=== PATIENT | male | born 1940 | race Caucasian/White ===

== ENCOUNTER 2022-01-18 16:00 | Inpatient (IN) | payer OTHER ==
[2022-01-18] MEDS ORDERED: SODIUM CHLORIDE 500 ML IV STA (17:50)
[2022-01-18] MEDS ORDERED: ACETAMINOPHEN 1000 MG/100 ML BAG IVPB ONE (17:50)
[2022-01-18] MEDS ORDERED: guaiFENesin 200 MG/10 ML 10 ML UNIT-DOSE CUPS PO ONE (17:51)
[2022-01-18] MEDS ORDERED: ACETAMINOPHEN INJECTION 100 ML IVPB ONE (17:55)
[2022-01-18] MEDS ORDERED: SODIUM CHLORIDE FOR INHALATION 3 ML VIAL.NEB IH ONE (17:56)
[2022-01-18 18:32] LABS: VENOUS BASE EXCESS -0.3 mmol/L (-2-2); VENOUS O2 SATURATION 81.4 % (70-80); VENOUS PCO2 31.8 mmHg (38-52); VENOUS PH 7.463 (7.310-7.410)
[2022-01-18 18:36] LABS: BASO % 0.3 % (0-2.0); HEMATOCRIT 40.1 % (35.4-49); HEMOGLOBIN 14.1 GM/dL (11.7-16.9); LYMPH % 2.7 % (8-40); MCH 32.2 pg (25.7-33.7); MCHC 35.1 g/dl (32.0-35.9); MEAN CELL VOLUME 91.9 fl (80-96); MONO % 3.8 % (3.8-10.2); NEUT % 93.2 % (42.8-82.8); PLATELET COUNT 164 10^3/uL (134-434); RBC 4.36 M/mm3 (4.00-5.60); RDW 14.2 % (11.9-15.9)
[2022-01-18 18:43] LABS: INR 1.12 (0.83-1.09); PROTHROMBIN TIME (PATIENT) 12.9 SEC (9.7-13.0)
[2022-01-18 18:45] LABS: ACTIVATED PTT 27.7 SECONDS (25.2-36.5)
[2022-01-18] MEDS ORDERED: guaiFENesin/D-METHORPHAN HB 10 ML UNIT-DOSE CUPS ONE (18:47)
[2022-01-18] MEDS ORDERED: guaiFENesin/CODEINE 5 ML UNIT-DOSE CUPS PO ONE (18:51)
[2022-01-18 19:00] LABS: CHLORIDE 106 mmol/L (98-107); SODIUM 140 mmol/L (136-145)
[2022-01-18 19:01] LABS: ALBUMIN 3.4 g/dl (3.4-5.0); CALCIUM 8.7 mg/dL (8.5-10.1)
[2022-01-18 19:02] LABS: ANION GAP 11 MMOL/L (8-16); BLOOD UREA NITROGEN 15.2 mg/dL (7-18); CO2 23 mmol/L (21-32); GLUCOSE,RANDOM 124 mg/dL (74-106)
[2022-01-18 19:04] LABS: CREATININE 1.3 mg/dL (0.55-1.3)
[2022-01-18 19:05] LABS: SGOT/AST 15 U/L (15-37); SGPT/ALT 19 U/L (13-61)
[2022-01-18 19:06] LABS: BILIRUBIN,TOTAL 0.4 mg/dL (0.2-1); TOT PROT 6.2 g/dl (6.4-8.2)
[2022-01-18 19:08] LABS: ALK PHOS 78 U/L (45-117)
[2022-01-18] MEDS ORDERED: guaiFENesin/D-METHORPHAN TAB.ER.12H PO STA (19:14)
[2022-01-18 19:20] LABS: LACTIC ACID 2.8 mmol/L (0.4-2.0)
[2022-01-18 19:33] LABS: ANISOCYTOSIS 1+; MACROCYTOSIS 0
[2022-01-18 19:37] LABS: EPI CELLS 3 /uL (0-25.1); HYALINE CASTS 0 /uL (0-3.1); PH,URINE 5.5 (5.0-8.0); URINE APPEARANCE CLEAR; URINE BACTERIA 12 /uL (0-1359); URINE BILIRUBIN NEGATIVE (NEGATIVE); URINE COLOR YELLOW; URINE GLUCOSE (UA) NEGATIVE (NEGATIVE); URINE KETONE NEGATIVE (NEGATIVE); URINE LEUK ESTERASE NEGATIVE (NEGATIVE); URINE NITRITE NEGATIVE (NEGATIVE); URINE PROTEIN NEGATIVE (NEGATIVE); URINE RBC 10 /uL (0-23.9); URINE WBC 2 /uL (0-25.8)
[2022-01-18] MEDS ORDERED: SODIUM CHLORIDE 1,000 ML IV STA (19:42)
[2022-01-18] MEDS ORDERED: DEXAMETHASONE SOD PHOSPHATE 10 MG/1 ML VIAL ONE (20:00)
[2022-01-18] MEDS ORDERED: DEXAMETHASONE SOD PHOSPHATE 10 MG/1 ML VIAL IVPUSH ONE (20:16)
[2022-01-18] MEDS ORDERED: AZITHROMYCIN IVPB 500 MG in DEXTROSE 5%-WATER - 250 ML IVPB ONE (21:49)
[2022-01-18] MEDS ORDERED: CEFTRIAXONE 1 GM in DEXTROSE 5%-WATER - 100 ML IVPB ONE (21:49)
[2022-01-18] MEDS ORDERED: POTASSIUM CHLORIDE TABS 20 MEQ TABLET.ER (FP) PO ONE ×2 (22:08→23:03)
[2022-01-18] MEDS ORDERED: AZITHROMYCIN IVPB 500 MG/250 ML BAG IVPB ONE ×2 (22:12→23:25)
[2022-01-18] MEDS ORDERED: CEFTRIAXONE 1 GM in DEXTROSE 5%-WATER - 50 ML IVPB ONE (22:12)
[2022-01-18] MEDS ORDERED: REMDESIVIR 200 MG in SODIUM CHLORIDE 250 ML IVPB ONE (23:00)
[2022-01-18] MEDS ORDERED: BENZOCAINE/MENTH/CETYLPYRD CL 1 EACH LOZENGE MM ONE (23:04)
[2022-01-18] MEDS ORDERED: CEFTRIAXONE 1 GM/50 ML BAG ONE (23:04)
[2022-01-18] MEDS: BENZOCAINE/MENTH/CETYLPYRD CL 1 EACH LOZENGE MM PRN (23:10)
[2022-01-18] MEDS ORDERED: KCL 10 MEQ IVPB 10 MEQ/100 ML INFUS.BAG IVPB SCH (23:30)
[2022-01-18 23:34] LABS: MAGNESIUM 1.7 mg/dL (1.8-2.4)
[2022-01-18 23:35] LABS: MAGNESIUM 1.8 mg/dL (1.8-2.4)
[2022-01-18] MEDS ORDERED: MELATONIN 5 MG TABLETS PO ONE (23:36)
[2022-01-18 23:45] LABS: ARTERIAL BLD GAS O2 SATURATION 98.7 % (95-98); ARTERIAL BLOOD GAS BASE EXCESS -3.9 mmol/L (-2-2); ARTERIAL BLOOD GAS PO2 135.2 mmHg (80-100); ARTERIAL BLOOD GAS pH 7.408 (7.350-7.450)
[2022-01-18] MEDS ORDERED: SODIUM CHLORIDE 1,000 ML IV SCH (23:45)
[2022-01-18 23:49] LABS: LACTIC ACID 2.7 mmol/L (0.4-2.0)
[2022-01-19] MEDS ORDERED: MELATONIN 5 MG TABLETS ONE (00:01)
[2022-01-19] MEDS ORDERED: KCL 10 MEQ IVPB 10 MEQ/100 ML INFUS.BAG IVPB ONE (02:05)
[2022-01-19 05:37] LABS: LACTIC ACID 2.3 mmol/L (0.4-2.0)
[2022-01-19] MEDS ORDERED: HEPARIN NA (PORCINE) 5,000 UNITS/ML 1ML VIAL ONE (06:00)
[2022-01-19] MEDS ORDERED: HEPARIN NA (PORCINE) 5,000 UNITS/ML 1ML VIAL SQ SCH (06:00)
[2022-01-19 07:14] LABS: HEMATOCRIT 37.7 % (35.4-49); HEMOGLOBIN 13.3 GM/dL (11.7-16.9); MCH 32.5 pg (25.7-33.7); MCHC 35.4 g/dl (32.0-35.9); MEAN PLT VOLUME 7.9 fl (7.5-11.1); PLATELET COUNT 145 10^3/uL (134-434); RDW 14.3 % (11.9-15.9); WHITE BLOOD COUNT 7.1 K/mm3 (4.0-10.0)
[2022-01-19 07:25] LABS: ALBUMIN 2.8 g/dl (3.4-5.0); CALCIUM 8.5 mg/dL (8.5-10.1)
[2022-01-19 07:26] LABS: BLOOD UREA NITROGEN 13.9 mg/dL (7-18); MAGNESIUM 1.4 mg/dL (1.8-2.4)
[2022-01-19 07:29] LABS: PHOSPHOROUS 2.3 mg/dL (2.5-4.9)
[2022-01-19 07:30] LABS: BILIRUBIN,TOTAL 0.4 mg/dL (0.2-1); TOT PROT 5.2 g/dl (6.4-8.2)
[2022-01-19] MEDS ORDERED: DEXAMETHASONE SOD PHOSPHATE 10 MG/1 ML VIAL ONE (07:59)
[2022-01-19] MEDS ORDERED: BENZOCAINE/MENTH/CETYLPYRD CL 1 EACH LOZENGE MM ONE ×2 (08:10→08:11)
[2022-01-19] MEDS: BENZOCAINE/MENTH/CETYLPYRD CL 1 EACH LOZENGE MM PRN (08:11)
[2022-01-19] MEDS ORDERED: ACETAMINOPHEN 1000 MG/100 ML BAG IVPB PRN ×2 (09:00→14:07)
[2022-01-19 09:03] LABS: ANISOCYTOSIS 0; HELMET CELLS 0; HOWELL-JOLLY BODIES 0; MACROCYTOSIS 0; OVALOCYTE 0; ROULEAU 0; SICKELED CELLS 0; TARGET CELLS 0; TEAR DROP CELLS 0; TOXIC GRANULATION 0
[2022-01-19 09:54] LABS: LACTIC ACID 3.5 mmol/L (0.4-2.0)
[2022-01-19] MEDS ORDERED: REMDESIVIR 100 MG in SODIUM CHLORIDE 250 ML IVPB SCH (10:00)
[2022-01-19] MEDS ORDERED: DEXAMETHASONE SOD PHOSPHATE 10 MG/1 ML VIAL IVPB SCH (10:00)
[2022-01-19] MEDS ORDERED: RAPID SEQUENCE INTUBATION KIT NR ONE (11:32)
[2022-01-19] MEDS ORDERED: DEXMEDETOMIDINE PREMIX 400 MCG/100 ML BAG IVPB SCH (12:15)
[2022-01-19] MEDS ORDERED: ACETAMINOPHEN INJECTION 100 ML IVPB ONE (12:21)
[2022-01-19] MEDS ORDERED: NITROGLYCERIN 25MG/D5W 250ML 25 MG/250 ML ML IVPB SCH (13:00)
[2022-01-19] MEDS ORDERED: MIDAZOLAM HCL 5 MG/1 ML Single Dose Vial IVPUSH ONE (13:52)
[2022-01-19] MEDS: DEXMEDETOMIDINE PREMIX 400 MCG/100 ML BAG IVPB SCH (14:00)
[2022-01-19 14:07] LABS: ARTERIAL BLD GAS O2 SATURATION 87.2 % (95-98); ARTERIAL BLOOD GAS BASE EXCESS -8.7 mmol/L (-2-2); ARTERIAL BLOOD GAS PO2 69.7 mmHg (80-100)
[2022-01-19 14:11] LABS: ALLENS TEST POSITIVE; PT'S TEMP 104; VENT MODE A/C; VENT RATE 12
[2022-01-19 14:13] LABS: ARTERIAL BLOOD GAS pH 7.119 (7.350-7.450)
[2022-01-19] MEDS ORDERED: FENTANYL IVPB 500 MCG/100 ML BAG IVPB SCH (14:15)
[2022-01-19] MEDS: PROPOFOL 1,000,000 MCG/100 ML VIAL IVPB SCH (14:15)
[2022-01-19] MEDS: MUPIROCIN 2% TOPICAL OINTMENT FOR DECOLONIZATION NS SCH ×2 (14:40→22:30)
[2022-01-19] MEDS ORDERED: CEFTRIAXONE 1 GM in DEXTROSE 5%-WATER - 50 ML IVPB SCH (14:45)
[2022-01-19] MEDS: SODIUM CHLORIDE 1,000 ML IV SCH (15:03)
[2022-01-19 15:55] LABS: ARTERIAL BLD GAS O2 SATURATION 87.6 % (95-98); ARTERIAL BLOOD GAS BASE EXCESS -7.2 mmol/L (-2-2); ARTERIAL BLOOD GAS PO2 66.6 mmHg (80-100)
[2022-01-19 15:57] LABS: ALLENS TEST POSITIVE; VENT MODE AC; VENT RATE 28
[2022-01-19 15:59] LABS: ARTERIAL BLOOD GAS pH 7.175 (7.350-7.450)
[2022-01-19] MEDS ORDERED: FENTANYL NS IVPB 500 MCG/100 ML BAG IVPB ONE (16:05)
[2022-01-19] MEDS: FENTANYL IVPB 500 MCG/100 ML BAG IVPB SCH (16:25)
[2022-01-19] MEDS ORDERED: MIDAZOLAM IN 0.9 % SOD.CHLORID 1 MG/1 ML PLAST..BAG ONE (16:52)
[2022-01-19] MEDS: MIDAZOLAM IN 0.9 % SOD.CHLORID 100 MG/100 ML PLAST..BAG IVPB SCH (16:57)
[2022-01-19] MEDS ORDERED: MIDAZOLAM 100 MG in SODIUM CHLORIDE 100 ML IVPB SCH (17:00)
[2022-01-19] MEDS: AZITHROMYCIN IVPB 250 MG in DEXTROSE 5%-WATER - 250 ML IVPB SCH (17:34)
[2022-01-19 17:36] LABS: LACTIC ACID 3.2 mmol/L (0.4-2.0)
[2022-01-19] MEDS ORDERED: DEXAMETHASONE SOD PHOSPHATE 10 MG/1 ML VIAL IVPUSH ONE (19:56)
[2022-01-19] MEDS ORDERED: ROCURONIUM BROMIDE 50 MG/5 ML VIAL IV STA (21:48)
[2022-01-19] MEDS ORDERED: CHLORHEXIDINE GLUCONATE 4% CLEANSER FOR DECOLONIZATION TP SCH (22:00)
[2022-01-19] MEDS ORDERED: MUPIROCIN 2% TOPICAL OINTMENT FOR DECOLONIZATION NS SCH (22:00)
[2022-01-19] MEDS: CHLORHEXIDINE GLUCONATE 4% CLEANSER FOR DECOLONIZATION TP SCH (22:30)
[2022-01-19] MEDS: HEPARIN NA (PORCINE) 5,000 UNITS/ML 1ML VIAL SQ SCH (22:30)
[2022-01-19 23:55] LABS: ARTERIAL BLD GAS O2 SATURATION 96.5 % (95-98); ARTERIAL BLOOD GAS BASE EXCESS -7.2 mmol/L (-2-2); ARTERIAL BLOOD GAS pH 7.203 (7.350-7.450)
[2022-01-19 23:56] LABS: ALLENS TEST POSITIVE
[2022-01-19 23:57] LABS: VENT MODE A/C; VENT RATE 28
[2022-01-20] MEDS ORDERED: fentaNYL CITRATE 250 MCG/5 ML VIAL ONE (01:49)
[2022-01-20] MEDS: HEPARIN NA (PORCINE) 5,000 UNITS/ML 1ML VIAL SQ SCH (06:26)
[2022-01-20] MEDS ORDERED: METOPROLOL TARTRATE 5 MG/5 ML VIAL IVPUSH ONE (07:44)
[2022-01-20] MEDS ORDERED: MAGNESIUM SULF 50% (8.12 MEQ/2 ML-1 GM VIAL) IVPB ONE (07:51)
[2022-01-20 08:32] LABS: HEMATOCRIT 37.7 % (35.4-49); HEMOGLOBIN 13.1 GM/dL (11.7-16.9); MCH 32.4 pg (25.7-33.7); MCHC 34.7 g/dl (32.0-35.9); MEAN CELL VOLUME 93.4 fl (80-96); MEAN PLT VOLUME 8.6 fl (7.5-11.1); PLATELET COUNT 170 10^3/uL (134-434); RBC 4.04 M/mm3 (4.00-5.60); RDW 14.9 % (11.9-15.9); WHITE BLOOD COUNT 16.5 K/mm3 (4.0-10.0)
[2022-01-20 08:44] LABS: ARTERIAL BLOOD GAS BASE EXCESS -6.4 mmol/L (-2-2); ARTERIAL BLOOD GAS PO2 166.2 mmHg (80-100); ARTERIAL BLOOD GAS pH 7.303 (7.350-7.450)
[2022-01-20 08:47] LABS: ALBUMIN 2.5 g/dl (3.4-5.0); BLOOD UREA NITROGEN 35.9 mg/dL (7-18); CALCIUM 8.5 mg/dL (8.5-10.1)
[2022-01-20 08:48] LABS: MAGNESIUM 1.9 mg/dL (1.8-2.4)
[2022-01-20 08:50] LABS: PHOSPHOROUS 5.9 mg/dL (2.5-4.9)
[2022-01-20 08:52] LABS: BILIRUBIN,TOTAL 0.5 mg/dL (0.2-1); CREATININE 2.4 mg/dL (0.55-1.3); TOT PROT 4.8 g/dl (6.4-8.2)
[2022-01-20] MEDS: DEXAMETHASONE SOD PHOSPHATE 10 MG/1 ML VIAL IVPB SCH (09:24)
[2022-01-20] MEDS: MUPIROCIN 2% TOPICAL OINTMENT FOR DECOLONIZATION NS SCH ×2 (09:24→21:08)
[2022-01-20] MEDS: PANTOPRAZOLE SODIUM 40 MG VIAL IVPUSH SCH (09:24)
[2022-01-20] MEDS: CEFTRIAXONE 2 GM in DEXTROSE 5%-WATER 100 ML IVPB SCH (09:25)
[2022-01-20] MEDS: AZITHROMYCIN IVPB 250 MG in DEXTROSE 5%-WATER - 250 ML IVPB SCH (09:25)
[2022-01-20] MEDS: NAPH,MB-DB/K PH,MBDB POWDER PACKET PO SCH ×2 (09:25→21:10)
[2022-01-20] MEDS: MIDAZOLAM IN 0.9 % SOD.CHLORID 100 MG/100 ML PLAST..BAG IVPB SCH ×2 (09:26→18:26)
[2022-01-20 09:50] LABS: LACTIC ACID 2.5 mmol/L (0.4-2.0)
[2022-01-20] MEDS ORDERED: REMDESIVIR 100 MG in SODIUM CHLORIDE 250 ML IVPB SCH (10:00)
[2022-01-20] MEDS ORDERED: LACTATED RINGERS SOLUTION 1,000 ML/1,000 ML INFUS.BAG IV ONE (10:23)
[2022-01-20] MEDS ORDERED: FENTANYL NS IVPB 500 MCG/100 ML BAG IVPB ONE ×2 (10:26→17:35)
[2022-01-20] MEDS ORDERED: HEPARIN NA (PORCINE) 5,000 UNITS/ML 1ML VIAL IVPUSH PRN ×2 (11:07)
[2022-01-20] MEDS: HEPARIN INFUSION - 25,000 UNITS/500 ML INFUS.BAG IVPB SCH ×2 (11:15→11:47)
[2022-01-20] MEDS ORDERED: METOPROLOL TARTRATE 5 MG/5 ML VIAL IVPUSH PRN (11:40)
[2022-01-20] MEDS ORDERED: VASOPRESSIN 20 UNITS/ML VIAL IV ONE (13:22)
[2022-01-20] MEDS: metoPROLOL SUCCINATE 25 MG TAB.SR.24H (FP) PO SCH ×2 (13:31→21:10)
[2022-01-20] MEDS: VASOPRESSIN 40 UNITS in SODIUM CHLORIDE 98 ML IVPB SCH (13:31)
[2022-01-20] MEDS: BARICITINIB 2 MG TABLET NGT SCH (18:24)
[2022-01-20] MEDS: FENTANYL IVPB 500 MCG/100 ML BAG IVPB SCH (18:25)
[2022-01-20] MEDS: SODIUM CHLORIDE 1,000 ML IV SCH (18:25)
[2022-01-20] MEDS: PROPOFOL 1,000,000 MCG/100 ML VIAL IVPB SCH (18:26)
[2022-01-20] MEDS: DEXMEDETOMIDINE PREMIX 400 MCG/100 ML BAG IVPB SCH (18:26)
[2022-01-20] MEDS: CHLORHEXIDINE GLUCONATE 4% CLEANSER FOR DECOLONIZATION TP SCH (21:08)
[2022-01-21] MEDS ORDERED: FENTANYL NS IVPB 500 MCG/100 ML BAG IVPB ONE (01:25)
[2022-01-21 07:41] LABS: HEMATOCRIT 31.5 % (35.4-49); HEMOGLOBIN 10.7 GM/dL (11.7-16.9); MCH 31.8 pg (25.7-33.7); MEAN CELL VOLUME 93.7 fl (80-96); MEAN PLT VOLUME 9.3 fl (7.5-11.1); PLATELET COUNT 156 10^3/uL (134-434); RBC 3.36 M/mm3 (4.00-5.60); RDW 14.4 % (11.9-15.9)
[2022-01-21 07:58] LABS: CHLORIDE 110 mmol/L (98-107); SODIUM 140 mmol/L (136-145)
[2022-01-21 08:03] LABS: CALCIUM 7.8 mg/dL (8.5-10.1); GLUCOSE,RANDOM 159 mg/dL (74-106)
[2022-01-21 08:04] LABS: ANION GAP 9 MMOL/L (8-16); CO2 22 mmol/L (21-32); MAGNESIUM 2.5 mg/dL (1.8-2.4)
[2022-01-21 08:06] LABS: CREATININE 2.6 mg/dL (0.55-1.3); PHOSPHOROUS 5.3 mg/dL (2.5-4.9); SGOT/AST 33 U/L (15-37); SGPT/ALT 19 U/L (13-61)
[2022-01-21 08:07] LABS: BILIRUBIN,TOTAL 0.2 mg/dL (0.2-1); TOT PROT 4.2 g/dl (6.4-8.2)
[2022-01-21 08:09] LABS: ALK PHOS 44 U/L (45-117)
[2022-01-21 08:15] LABS: BLOOD UREA NITROGEN 62.1 mg/dL (7-18)
[2022-01-21] MEDS: VASOPRESSIN 40 UNITS in SODIUM CHLORIDE 98 ML IVPB SCH (08:20)
[2022-01-21] MEDS: MIDAZOLAM IN 0.9 % SOD.CHLORID 100 MG/100 ML PLAST..BAG IVPB SCH (08:24)
[2022-01-21] MEDS: PANTOPRAZOLE SODIUM 40 MG VIAL IVPUSH SCH (09:06)
[2022-01-21] MEDS: MUPIROCIN 2% TOPICAL OINTMENT FOR DECOLONIZATION NS SCH ×2 (09:06→21:29)
[2022-01-21] MEDS: DEXAMETHASONE SOD PHOSPHATE 10 MG/1 ML VIAL IVPB SCH (09:07)
[2022-01-21] MEDS: CEFTRIAXONE 2 GM in DEXTROSE 5%-WATER 100 ML IVPB SCH (09:08)
[2022-01-21] MEDS: METOPROLOL TARTRATE 25 MG TABLET (FP) NGT SCH ×2 (09:08→21:30)
[2022-01-21] MEDS: AZITHROMYCIN IVPB 250 MG in DEXTROSE 5%-WATER - 250 ML IVPB SCH (09:11)
[2022-01-21] MEDS: HEPARIN INFUSION - 25,000 UNITS/500 ML INFUS.BAG IVPB SCH (11:15)
[2022-01-21] MEDS: BARICITINIB 2 MG TABLET NGT SCH (13:59)
[2022-01-21] MEDS ORDERED: PROPOFOL 1,000,000 MCG/100 ML VIAL ONE (14:29)
[2022-01-21] MEDS: PROPOFOL 1,000,000 MCG/100 ML VIAL IVPB SCH (14:33)
[2022-01-21] MEDS: SODIUM CHLORIDE 1,000 ML IV SCH (18:51)
[2022-01-21] MEDS: CHLORHEXIDINE GLUCONATE 4% CLEANSER FOR DECOLONIZATION TP SCH (21:29)
[2022-01-22] MEDS: PROPOFOL 1,000,000 MCG/100 ML VIAL IVPB SCH ×3 (01:30→19:37)
[2022-01-22 07:26] LABS: HEMATOCRIT 28.1 % (35.4-49); MCH 32.9 pg (25.7-33.7); MCHC 35.5 g/dl (32.0-35.9); MEAN CELL VOLUME 92.5 fl (80-96); MEAN PLT VOLUME 8.9 fl (7.5-11.1); PLATELET COUNT 131 10^3/uL (134-434); RBC 3.04 M/mm3 (4.00-5.60); RDW 14.2 % (11.9-15.9); WHITE BLOOD COUNT 13.3 K/mm3 (4.0-10.0)
[2022-01-22] MEDS ORDERED: LACTATED RINGERS SOLUTION 1,000 ML/1,000 ML INFUS.BAG IV SCH (07:45)
[2022-01-22 07:53] LABS: ALBUMIN 1.9 g/dl (3.4-5.0); CALCIUM 7.8 mg/dL (8.5-10.1); MAGNESIUM 2.6 mg/dL (1.8-2.4)
[2022-01-22 07:56] LABS: CREATININE 2.1 mg/dL (0.55-1.3)
[2022-01-22 07:57] LABS: PHOSPHOROUS 3.5 mg/dL (2.5-4.9)
[2022-01-22 07:58] LABS: BILIRUBIN,TOTAL 0.2 mg/dL (0.2-1); TOT PROT 4.1 g/dl (6.4-8.2)
[2022-01-22] MEDS ORDERED: PROPOFOL 200 MG/20 ML VIAL IVPUSH ONE (08:29)
[2022-01-22] MEDS: AZITHROMYCIN IVPB 250 MG in DEXTROSE 5%-WATER - 250 ML IVPB SCH (09:24)
[2022-01-22] MEDS: CEFTRIAXONE 2 GM in DEXTROSE 5%-WATER 100 ML IVPB SCH ×2 (09:30→11:23)
[2022-01-22] MEDS: METOPROLOL TARTRATE 25 MG TABLET (FP) NGT SCH ×2 (09:45→21:45)
[2022-01-22] MEDS: FUROSEMIDE 40 MG/4 ML INJECTABLE VIAL IVPUSH ONE ×2 (09:45→11:23)
[2022-01-22] MEDS: DEXAMETHASONE SOD PHOSPHATE 10 MG/1 ML VIAL IVPB SCH (09:45)
[2022-01-22] MEDS: PANTOPRAZOLE SODIUM 40 MG VIAL IVPUSH SCH (09:45)
[2022-01-22] MEDS: MUPIROCIN 2% TOPICAL OINTMENT FOR DECOLONIZATION NS SCH ×2 (10:00→21:44)
[2022-01-22] MEDS ORDERED: PROPOFOL 1,000,000 MCG/100 ML VIAL ONE (12:27)
[2022-01-22] MEDS ORDERED: FUROSEMIDE 40 MG/4 ML INJECTABLE VIAL IVPUSH ONE (16:00)
[2022-01-22] MEDS: BARICITINIB 2 MG TABLET NGT SCH (16:02)
[2022-01-22] MEDS: AMINO ACIDS/PROTEIN HYDROLYS 30 ML LIQUID.PKT PO SCH (16:55)
[2022-01-22] MEDS: HEPARIN INFUSION - 25,000 UNITS/500 ML INFUS.BAG IVPB SCH (18:40)
[2022-01-22] MEDS ORDERED: DEXMEDETOMIDINE PREMIX 400 MCG/100 ML BAG IVPB SCH (21:30)
[2022-01-22] MEDS: CHLORHEXIDINE GLUCONATE 4% CLEANSER FOR DECOLONIZATION TP SCH (21:44)
[2022-01-23] MEDS: PROPOFOL 1,000,000 MCG/100 ML VIAL IVPB SCH ×2 (00:27→05:47)
[2022-01-23 08:13] LABS: BLOOD UREA NITROGEN 71.7 mg/dL (7-18); MAGNESIUM 2.6 mg/dL (1.8-2.4)
[2022-01-23 08:14] LABS: HEMATOCRIT 29.5 % (35.4-49); HEMOGLOBIN 10.5 GM/dL (11.7-16.9); MCH 32.9 pg (25.7-33.7); MCHC 35.7 g/dl (32.0-35.9); MEAN CELL VOLUME 92.3 fl (80-96); MEAN PLT VOLUME 8.9 fl (7.5-11.1); PLATELET COUNT 152 10^3/uL (134-434); WHITE BLOOD COUNT 14.2 K/mm3 (4.0-10.0)
[2022-01-23 08:16] LABS: PHOSPHOROUS 3.6 mg/dL (2.5-4.9)
[2022-01-23 08:17] LABS: TOT PROT 4.3 g/dl (6.4-8.2)
[2022-01-23 08:18] LABS: BILIRUBIN,TOTAL 0.2 mg/dL (0.2-1)
[2022-01-23] MEDS: AMINO ACIDS/PROTEIN HYDROLYS 30 ML LIQUID.PKT PO SCH ×2 (08:44→19:26)
[2022-01-23] MEDS ORDERED: morphine SULFATE 4 MG/ML VIAL IVPUSH ONE (10:17)
[2022-01-23] MEDS ORDERED: LORazepam 2 MG/ML SDV VIAL IVPUSH ONE (10:18)
[2022-01-23] MEDS: MUPIROCIN 2% TOPICAL OINTMENT FOR DECOLONIZATION NS SCH ×2 (10:36→21:46)
[2022-01-23] MEDS: DEXAMETHASONE SOD PHOSPHATE 10 MG/1 ML VIAL IVPB SCH (10:36)
[2022-01-23] MEDS: METOPROLOL TARTRATE 25 MG TABLET (FP) NGT SCH ×2 (10:37→21:49)
[2022-01-23] MEDS: PANTOPRAZOLE SODIUM 40 MG VIAL IVPUSH SCH (10:37)
[2022-01-23] MEDS: CEFTRIAXONE 2 GM in DEXTROSE 5%-WATER 100 ML IVPB SCH (10:37)
[2022-01-23] MEDS: AZITHROMYCIN IVPB 250 MG in DEXTROSE 5%-WATER - 250 ML IVPB SCH (10:37)
[2022-01-23] MEDS ORDERED: amLODIPine BESYLATE 5 MG TABLET (FP) PO ONE (11:51)
[2022-01-23] MEDS ORDERED: CARVEDILOL 3.125 MG TABLET (FP) PO ONE (11:57)
[2022-01-23] MEDS ORDERED: PROPOFOL 1,000,000 MCG/100 ML VIAL IVPB SCH (12:18)
[2022-01-23] MEDS ORDERED: FUROSEMIDE 40 MG/4 ML INJECTABLE VIAL IVPUSH SCH (14:00)
[2022-01-23] MEDS: BARICITINIB 2 MG TABLET PO SCH (15:30)
[2022-01-23] MEDS: SODIUM CHLORIDE NASAL SPRAY 44 ML BOTTLE NS PRN (15:34)
[2022-01-23 15:56] LABS: ACTIVATED PTT 52.7 SECONDS (25.2-36.5); INR 1.05 (0.83-1.09); PROTHROMBIN TIME (PATIENT) 12.1 SEC (9.7-13.0)
[2022-01-23] MEDS ORDERED: hydrOXYzine HCL 10 MG/5 ML LIQUID BULK BOTTLE PO PRN ×2 (17:13→17:21)
[2022-01-23] MEDS ORDERED: ALBUTEROL SO4 2.5/IPRATROPIUM 0.5 INH SOL 3 ML VIAL.NEB. NEB ONE (17:13)
[2022-01-23] MEDS: hydrOXYzine HCL 10 MG/5 ML LIQUID BULK BOTTLE PO PRN (17:51)
[2022-01-23] MEDS ORDERED: ACETAMINOPHEN 1000 MG/100 ML BAG IVPB ONE (18:27)
[2022-01-23] MEDS: KCL 10 MEQ IVPB 10 MEQ/100 ML INFUS.BAG IVPB SCH ×3 (19:03→21:46)
[2022-01-23] MEDS: CHLORHEXIDINE GLUCONATE 4% CLEANSER FOR DECOLONIZATION TP SCH (21:46)
[2022-01-23] MEDS: HEPARIN INFUSION - 25,000 UNITS/500 ML INFUS.BAG IVPB SCH (21:47)
[2022-01-23] MEDS: traZODone HCL 50 MG TABLET (FP) PO SCH ×2 (21:48→21:55)
[2022-01-23] MEDS ORDERED: MELATONIN 5 MG TABLETS PO PRN (21:56)
[2022-01-24] MEDS: hydrOXYzine HCL 10 MG/5 ML LIQUID BULK BOTTLE PO PRN ×2 (01:05→16:05)
[2022-01-24 07:35] LABS: HEMATOCRIT 32.1 % (35.4-49); HEMOGLOBIN 11.1 GM/dL (11.7-16.9); MCH 31.7 pg (25.7-33.7); MCHC 34.8 g/dl (32.0-35.9); MEAN CELL VOLUME 91.2 fl (80-96); MEAN PLT VOLUME 8.8 fl (7.5-11.1); PLATELET COUNT 171 10^3/uL (134-434); RBC 3.52 M/mm3 (4.00-5.60); RDW 13.8 % (11.9-15.9); WHITE BLOOD COUNT 13.5 K/mm3 (4.0-10.0)
[2022-01-24 07:54] LABS: BLOOD UREA NITROGEN 54.8 mg/dL (7-18); CALCIUM 8.1 mg/dL (8.5-10.1); MAGNESIUM 2.3 mg/dL (1.8-2.4)
[2022-01-24 07:55] LABS: ALBUMIN 2.2 g/dl (3.4-5.0)
[2022-01-24 07:57] LABS: CREATININE 1.4 mg/dL (0.55-1.3); PHOSPHOROUS 2.4 mg/dL (2.5-4.9)
[2022-01-24 07:59] LABS: BILIRUBIN,TOTAL 0.4 mg/dL (0.2-1); TOT PROT 4.3 g/dl (6.4-8.2)
[2022-01-24] MEDS: PANTOPRAZOLE SODIUM 40 MG VIAL IVPUSH SCH (10:22)
[2022-01-24] MEDS: MUPIROCIN 2% TOPICAL OINTMENT FOR DECOLONIZATION NS SCH (10:22)
[2022-01-24] MEDS: AMINO ACIDS/PROTEIN HYDROLYS 30 ML LIQUID.PKT PO SCH ×2 (10:22→18:05)
[2022-01-24] MEDS: FUROSEMIDE 40 MG/4 ML INJECTABLE VIAL IVPUSH SCH (10:22)
[2022-01-24] MEDS: METOPROLOL TARTRATE 25 MG TABLET (FP) NGT SCH (10:22)
[2022-01-24] MEDS: DEXAMETHASONE SOD PHOSPHATE 10 MG/1 ML VIAL IVPB SCH (10:22)
[2022-01-24] MEDS: CEFTRIAXONE 2 GM in DEXTROSE 5%-WATER 100 ML IVPB SCH (10:22)
[2022-01-24] MEDS ORDERED: OXYMETAZOLINE 0.05% NASAL SOLUTION 15 ML BOTTLE NS PRN (11:28)
[2022-01-24] MEDS: KCL 10 MEQ IVPB 10 MEQ/100 ML INFUS.BAG IVPB SCH ×2 (11:39→13:22)
[2022-01-24 12:45] VITALS: BMI 25.7
[2022-01-24] MEDS: BARICITINIB 2 MG TABLET PO SCH (16:04)
[2022-01-24] MEDS: SODIUM CHLORIDE NASAL SPRAY 44 ML BOTTLE NS PRN (16:07)
[2022-01-24] MEDS: HEPARIN INFUSION - 25,000 UNITS/500 ML INFUS.BAG IVPB SCH (18:40)
[2022-01-24] MEDS: CHLORHEXIDINE GLUCONATE 4% CLEANSER FOR DECOLONIZATION TP SCH (22:31)
[2022-01-25 07:44] LABS: HEMATOCRIT 35.2 % (35.4-49); HEMOGLOBIN 12.1 GM/dL (11.7-16.9); MCH 31.5 pg (25.7-33.7); MCHC 34.5 g/dl (32.0-35.9); MEAN CELL VOLUME 91.2 fl (80-96); MEAN PLT VOLUME 8.6 fl (7.5-11.1); PLATELET COUNT 198 10^3/uL (134-434); RBC 3.86 M/mm3 (4.00-5.60); RDW 13.5 % (11.9-15.9); WHITE BLOOD COUNT 11.2 K/mm3 (4.0-10.0)
[2022-01-25 08:10] LABS: CALCIUM 8.4 mg/dL (8.5-10.1)
[2022-01-25 08:11] LABS: ALBUMIN 2.2 g/dl (3.4-5.0); BLOOD UREA NITROGEN 37.4 mg/dL (7-18); MAGNESIUM 2.2 mg/dL (1.8-2.4)
[2022-01-25 08:14] LABS: CREATININE 1.1 mg/dL (0.55-1.3); PHOSPHOROUS 2.3 mg/dL (2.5-4.9)
[2022-01-25 08:15] LABS: TOT PROT 4.5 g/dl (6.4-8.2)
[2022-01-25 08:16] LABS: BILIRUBIN,TOTAL 0.4 mg/dL (0.2-1)
[2022-01-25] MEDS: PANTOPRAZOLE SODIUM 40 MG VIAL IVPUSH SCH (09:32)
[2022-01-25] MEDS: AMINO ACIDS/PROTEIN HYDROLYS 30 ML LIQUID.PKT PO SCH ×2 (09:32→17:39)
[2022-01-25] MEDS: DEXAMETHASONE SOD PHOSPHATE 10 MG/1 ML VIAL IVPB SCH (09:33)
[2022-01-25] MEDS: FUROSEMIDE 40 MG/4 ML INJECTABLE VIAL IVPUSH SCH (09:33)
[2022-01-25] MEDS: CEFTRIAXONE 2 GM in DEXTROSE 5%-WATER 100 ML IVPB SCH (09:35)
[2022-01-25] MEDS: BARICITINIB 2 MG TABLET PO SCH (16:12)
[2022-01-25] MEDS: HEPARIN INFUSION - 25,000 UNITS/500 ML INFUS.BAG IVPB SCH ×2 (17:38→19:36)
[2022-01-25] MEDS: CHLORHEXIDINE GLUCONATE 4% CLEANSER FOR DECOLONIZATION TP SCH (21:17)
[2022-01-26 07:28] LABS: ALBUMIN 2.2 g/dl (3.4-5.0); BLOOD UREA NITROGEN 34.2 mg/dL (7-18); CALCIUM 8.4 mg/dL (8.5-10.1); MAGNESIUM 2.1 mg/dL (1.8-2.4)
[2022-01-26 07:31] LABS: PHOSPHOROUS 2.9 mg/dL (2.5-4.9)
[2022-01-26 07:33] LABS: TOT PROT 4.6 g/dl (6.4-8.2)
[2022-01-26 07:41] LABS: HEMATOCRIT 36.1 % (35.4-49); HEMOGLOBIN 12.6 GM/dL (11.7-16.9); MCHC 34.7 g/dl (32.0-35.9); MEAN CELL VOLUME 92.2 fl (80-96); MEAN PLT VOLUME 8.3 fl (7.5-11.1); PLATELET COUNT 228 10^3/uL (134-434); RBC 3.92 M/mm3 (4.00-5.60); RDW 13.6 % (11.9-15.9); WHITE BLOOD COUNT 16.3 K/mm3 (4.0-10.0)
[2022-01-26 08:50] LABS: BILIRUBIN,TOTAL 0.4 mg/dL (0.2-1)
[2022-01-26] MEDS: DEXAMETHASONE SOD PHOSPHATE 10 MG/1 ML VIAL IVPB SCH (09:33)
[2022-01-26] MEDS: AMINO ACIDS/PROTEIN HYDROLYS 30 ML LIQUID.PKT PO SCH ×2 (09:33→17:33)
[2022-01-26] MEDS: PANTOPRAZOLE SODIUM 40 MG VIAL IVPUSH SCH (09:34)
[2022-01-26] MEDS: POTASSIUM CHLORIDE ORAL LIQUID 20 MEQ/15 ML PO SCH (09:34)
[2022-01-26] MEDS: FUROSEMIDE 40 MG/4 ML INJECTABLE VIAL IVPUSH SCH (09:34)
[2022-01-26] MEDS: APIXABAN 5 MG TABLET PO SCH ×2 (14:50→22:11)
[2022-01-26] MEDS: BARICITINIB 2 MG TABLET PO SCH (17:32)
[2022-01-26] MEDS: SPIRONOLACTONE 25 MG TABLET PO SCH (17:33)
[2022-01-26] MEDS ORDERED: SPIRONOLACTONE 25 MG TABLET PO SCH (22:00)
[2022-01-26] MEDS: CHLORHEXIDINE GLUCONATE 4% CLEANSER FOR DECOLONIZATION TP SCH (22:11)
[2022-01-27 07:31] LABS: HEMATOCRIT 36.7 % (35.4-49); HEMOGLOBIN 12.4 GM/dL (11.7-16.9); MCHC 33.8 g/dl (32.0-35.9); MEAN CELL VOLUME 91.9 fl (80-96); MEAN PLT VOLUME 8.4 fl (7.5-11.1); PLATELET COUNT 280 10^3/uL (134-434); RDW 14.1 % (11.9-15.9); WHITE BLOOD COUNT 21.1 K/mm3 (4.0-10.0)
[2022-01-27 07:55] LABS: CALCIUM 8.3 mg/dL (8.5-10.1)
[2022-01-27 07:56] LABS: ALBUMIN 2.3 g/dl (3.4-5.0); BLOOD UREA NITROGEN 40.1 mg/dL (7-18); MAGNESIUM 2.1 mg/dL (1.8-2.4)
[2022-01-27 07:59] LABS: CREATININE 1.2 mg/dL (0.55-1.3); PHOSPHOROUS 2.6 mg/dL (2.5-4.9)
[2022-01-27 08:00] LABS: BILIRUBIN,TOTAL 0.4 mg/dL (0.2-1); TOT PROT 4.8 g/dl (6.4-8.2)
[2022-01-27] MEDS: AMINO ACIDS/PROTEIN HYDROLYS 30 ML LIQUID.PKT PO SCH ×2 (08:51→17:38)
[2022-01-27 09:17] LABS: ANISOCYTOSIS 0; MACROCYTOSIS 0
[2022-01-27 09:22] LABS: HEMATOCRIT 39.6 % (35.4-49); HEMOGLOBIN 13.4 GM/dL (11.7-16.9); MCH 31.6 pg (25.7-33.7); MCHC 33.7 g/dl (32.0-35.9); MEAN CELL VOLUME 93.6 fl (80-96); MEAN PLT VOLUME 8.6 fl (7.5-11.1); PLATELET COUNT 329 10^3/uL (134-434); RBC 4.23 M/mm3 (4.00-5.60); RDW 14.4 % (11.9-15.9); WHITE BLOOD COUNT 22.1 K/mm3 (4.0-10.0)
[2022-01-27] MEDS: FUROSEMIDE 40 MG/4 ML INJECTABLE VIAL IVPUSH SCH (09:50)
[2022-01-27] MEDS: PANTOPRAZOLE SODIUM 40 MG VIAL IVPUSH SCH (09:50)
[2022-01-27] MEDS: DEXAMETHASONE SOD PHOSPHATE 10 MG/1 ML VIAL IVPB SCH (09:50)
[2022-01-27] MEDS: SPIRONOLACTONE 25 MG TABLET PO SCH (09:51)
[2022-01-27] MEDS: APIXABAN 5 MG TABLET PO SCH ×2 (09:51→22:12)
[2022-01-27] MEDS: POTASSIUM CHLORIDE ORAL LIQUID 20 MEQ/15 ML PO SCH (09:51)
[2022-01-27 10:05] LABS: ANISOCYTOSIS 0; HELMET CELLS 0; HOWELL-JOLLY BODIES 0; MACROCYTOSIS 0; OVALOCYTE 0; ROULEAU 0; SICKELED CELLS 0; TARGET CELLS 0; TEAR DROP CELLS 0; TOXIC GRANULATION 0
[2022-01-27 10:49] LABS: ALBUMIN 2.6 g/dl (3.4-5.0); CALCIUM 8.7 mg/dL (8.5-10.1); MAGNESIUM 2.2 mg/dL (1.8-2.4)
[2022-01-27 10:52] LABS: CREATININE 1.3 mg/dL (0.55-1.3)
[2022-01-27 10:54] LABS: BILIRUBIN,TOTAL 0.5 mg/dL (0.2-1); TOT PROT 5.2 g/dl (6.4-8.2)
[2022-01-27] MEDS ORDERED: POTASSIUM CHLORIDE TABS 20 MEQ TABLET.ER (FP) PO ONE (14:09)
[2022-01-27] MEDS: BARICITINIB 2 MG TABLET PO SCH (15:07)
[2022-01-27] MEDS: CHLORHEXIDINE GLUCONATE 4% CLEANSER FOR DECOLONIZATION TP SCH (22:12)
[2022-01-28 07:51] LABS: HEMATOCRIT 35.2 % (35.4-49); HEMOGLOBIN 12.3 GM/dL (11.7-16.9); MCH 32.1 pg (25.7-33.7); MCHC 34.9 g/dl (32.0-35.9); MEAN CELL VOLUME 92.2 fl (80-96); MEAN PLT VOLUME 8.1 fl (7.5-11.1); PLATELET COUNT 284 10^3/uL (134-434); RBC 3.82 M/mm3 (4.00-5.60); RDW 14.1 % (11.9-15.9)
[2022-01-28 08:06] LABS: ALBUMIN 2.3 g/dl (3.4-5.0); CALCIUM 8.9 mg/dL (8.5-10.1); MAGNESIUM 2.2 mg/dL (1.8-2.4)
[2022-01-28 08:09] LABS: CREATININE 1.2 mg/dL (0.55-1.3)
[2022-01-28 08:10] LABS: BILIRUBIN,TOTAL 0.5 mg/dL (0.2-1); TOT PROT 4.7 g/dl (6.4-8.2)
[2022-01-28] MEDS: SPIRONOLACTONE 25 MG TABLET PO SCH (09:50)
[2022-01-28] MEDS: APIXABAN 5 MG TABLET PO SCH ×2 (09:50→21:13)
[2022-01-28] MEDS: FUROSEMIDE 40 MG/4 ML INJECTABLE VIAL IVPUSH SCH (09:50)
[2022-01-28] MEDS: AMINO ACIDS/PROTEIN HYDROLYS 30 ML LIQUID.PKT PO SCH ×2 (09:50→19:33)
[2022-01-28] MEDS: PANTOPRAZOLE SODIUM 40 MG VIAL IVPUSH SCH (09:50)
[2022-01-28] MEDS: POTASSIUM CHLORIDE ORAL LIQUID 20 MEQ/15 ML PO SCH (09:50)
[2022-01-28] MEDS: DEXAMETHASONE SOD PHOSPHATE 10 MG/1 ML VIAL IVPB SCH (09:51)
[2022-01-28 12:44] LABS: HELMET CELLS 0; HOWELL-JOLLY BODIES 0; OVALOCYTE 0; ROULEAU 0; SICKELED CELLS 0; TARGET CELLS 0; TEAR DROP CELLS 0; TOXIC GRANULATION 0
[2022-01-28 12:45] LABS: ANISOCYTOSIS 0; MACROCYTOSIS 0
[2022-01-28] MEDS: BARICITINIB 2 MG TABLET PO SCH (15:32)
[2022-01-28] MEDS: CHLORHEXIDINE GLUCONATE 4% CLEANSER FOR DECOLONIZATION TP SCH (21:13)
[2022-01-29 07:34] LABS: HEMATOCRIT 36.5 % (35.4-49); HEMOGLOBIN 12.9 GM/dL (11.7-16.9); MCH 32.9 pg (25.7-33.7); MCHC 35.3 g/dl (32.0-35.9); MEAN CELL VOLUME 93.3 fl (80-96); MEAN PLT VOLUME 8.6 fl (7.5-11.1); PLATELET COUNT 314 10^3/uL (134-434); RBC 3.91 M/mm3 (4.00-5.60); RDW 14.1 % (11.9-15.9); WHITE BLOOD COUNT 15.8 K/mm3 (4.0-10.0)
[2022-01-29 07:50] LABS: ALBUMIN 2.6 g/dl (3.4-5.0); BLOOD UREA NITROGEN 50.6 mg/dL (7-18); CALCIUM 8.8 mg/dL (8.5-10.1); MAGNESIUM 2.4 mg/dL (1.8-2.4)
[2022-01-29 07:53] LABS: CREATININE 1.3 mg/dL (0.55-1.3)
[2022-01-29 07:54] LABS: BILIRUBIN,TOTAL 0.5 mg/dL (0.2-1); TOT PROT 5.4 g/dl (6.4-8.2)
[2022-01-29 08:53] LABS: ANISOCYTOSIS 0; MACROCYTOSIS 0
[2022-01-29] MEDS: APIXABAN 5 MG TABLET PO SCH ×2 (09:15→21:30)
[2022-01-29] MEDS: FUROSEMIDE 40 MG TABLET (FP) PO SCH (09:15)
[2022-01-29] MEDS: PANTOPRAZOLE SODIUM 40 MG VIAL IVPUSH SCH (09:15)
[2022-01-29] MEDS: AMINO ACIDS/PROTEIN HYDROLYS 30 ML LIQUID.PKT PO SCH ×3 (09:15→16:30)
[2022-01-29] MEDS: MULTIVITAMINS (DAILY MVI) TABLET (FP) PO SCH (09:15)
[2022-01-29] MEDS: SPIRONOLACTONE 25 MG TABLET PO SCH (09:15)
[2022-01-29] MEDS: DEXAMETHASONE SOD PHOSPHATE 10 MG/1 ML VIAL IVPB SCH (09:15)
[2022-01-29] MEDS: BARICITINIB 2 MG TABLET PO SCH (15:14)
[2022-01-29] MEDS: CHLORHEXIDINE GLUCONATE 4% CLEANSER FOR DECOLONIZATION TP SCH (21:30)
[2022-01-29] MEDS: METOPROLOL TARTRATE 25 MG TABLET (FP) PO SCH (21:30)
[2022-01-30 07:38] LABS: HEMATOCRIT 32.7 % (35.4-49); HEMOGLOBIN 11.6 GM/dL (11.7-16.9); MCH 32.6 pg (25.7-33.7); MCHC 35.5 g/dl (32.0-35.9); MEAN CELL VOLUME 91.7 fl (80-96); MEAN PLT VOLUME 8.3 fl (7.5-11.1); PLATELET COUNT 348 10^3/uL (134-434); RBC 3.57 M/mm3 (4.00-5.60); RDW 14.2 % (11.9-15.9); WHITE BLOOD COUNT 14.5 K/mm3 (4.0-10.0)
[2022-01-30 08:14] LABS: BLOOD UREA NITROGEN 54.5 mg/dL (7-18); CALCIUM 8.5 mg/dL (8.5-10.1)
[2022-01-30 08:15] LABS: ALBUMIN 2.4 g/dl (3.4-5.0); MAGNESIUM 2.1 mg/dL (1.8-2.4)
[2022-01-30 08:17] LABS: CREATININE 1.1 mg/dL (0.55-1.3)
[2022-01-30 08:19] LABS: BILIRUBIN,TOTAL 0.6 mg/dL (0.2-1); TOT PROT 4.8 g/dl (6.4-8.2)
[2022-01-30] MEDS: AMINO ACIDS/PROTEIN HYDROLYS 30 ML LIQUID.PKT PO SCH (09:00)
[2022-01-30 09:01] LABS: ANISOCYTOSIS 3+; MACROCYTOSIS 0
[2022-01-30] MEDS: METOPROLOL TARTRATE 25 MG TABLET (FP) PO SCH (09:46)
[2022-01-30] MEDS: SPIRONOLACTONE 25 MG TABLET PO SCH (09:46)
[2022-01-30] MEDS: FUROSEMIDE 40 MG TABLET (FP) PO SCH (09:46)
[2022-01-30] MEDS: MULTIVITAMINS (DAILY MVI) TABLET (FP) PO SCH (09:46)
[2022-01-30] MEDS: PANTOPRAZOLE SODIUM 40 MG VIAL IVPUSH SCH (09:46)
[2022-01-30] MEDS: hydrOXYzine HCL 10 MG/5 ML LIQUID BULK BOTTLE PO PRN (09:46)
[2022-01-30] MEDS: APIXABAN 5 MG TABLET PO SCH (09:57)
[2022-01-30 10:34] VITALS: RESP 17; TEMP 97.9
[2022-01-30 10:41] VITALS: BP 135/64; PULSE 75
== END 2022-01-30 13:35 | disposition home health service (06) | DRG 207 ==
LOC: JER 16:00 → JERBED 22:15 → JICU 01-19 13:51
PROVIDERS: ADMIT Internal Medicine; ATTEND Nurse Practitioner Acute Care
PROC: 5A1955Z Respiratory Ventilation, Greater than 96 Consecutive Hours (ICD-10-PCS; principal; 2022-01-19)
PROC: 0BH17EZ Insertion of Endotracheal Airway into Trachea, Via Natural or Artificial Opening (ICD-10-PCS; 2022-01-19)
PROC: 03HY32Z Insertion of Monitoring Device into Upper Artery, Percutaneous Approach (ICD-10-PCS; 2022-01-19)
PROC: 4A133B1 Monitoring of Arterial Pressure, Peripheral, Percutaneous Approach (ICD-10-PCS; 2022-01-19)
PROC: 4A133J1 Monitoring of Arterial Pulse, Peripheral, Percutaneous Approach (ICD-10-PCS; 2022-01-19)
PROC: XW033E5 Introduction of Remdesivir Anti-infective into Peripheral Vein, Percutaneous Approach, New Technology Group 5 (ICD-10-PCS; 2022-01-20)
PROC: 02HV33Z Insertion of Infusion Device into Superior Vena Cava, Percutaneous Approach (ICD-10-PCS; 2022-01-21)
PROC: B548ZZA Ultrasonography of Superior Vena Cava, Guidance (ICD-10-PCS; 2022-01-21)
DX: U07.1 COVID-19 (principal); A41.9 Sepsis, unspecified organism; I21.4 Non-ST elevation (NSTEMI) myocardial infarction; J12.82 Pneumonia due to coronavirus disease 2019; R65.21 Severe sepsis with septic shock; I50.31 Acute diastolic (congestive) heart failure; J96.01 Acute respiratory failure with hypoxia; J96.02 Acute respiratory failure with hypercapnia; I24.8 Other forms of acute ischemic heart disease; E87.20 Acidosis, unspecified; N17.9 Acute kidney failure, unspecified; I13.0 Hypertensive heart and chronic kidney disease with heart failure and stage 1 through stage 4 chronic kidney disease, or unspecified chronic kidney disease; I10 Essential (primary) hypertension; I45.10 Unspecified right bundle-branch block; E87.6 Hypokalemia; K76.89 Other specified diseases of liver; R91.1 Solitary pulmonary nodule; I48.0 Paroxysmal atrial fibrillation; N18.9 Chronic kidney disease, unspecified
CPT/HCPCS: 0241U-QW; 36415; 36600; 71045-TC-FY; 71275-TC; 80053; 80061; 81003; 82272; 82550; 82553; 82728; 82803; 82962; 83605; 83615; 83735; 83880; 84100; 84443; 84484; 85025; 85027; 85379; 85610; 85651; 85730; 86140; 86480; 86850; 86900; 86901; 87040; 87070; 87086; 87205; 87517; 87522; 87633; 87899; 93005; 93010; 93306-TC; 94002; 94640; 94761; 97116-GP; 97161-GP; 99285-25; C9399; C9803-CS; J1100; J1644; Q9967; U0003; U0005

== ENCOUNTER 2024-01-28 04:20 | Day surgery (SDC) | payer OTHER ==
[2024-01-27 14:04] VITALS: BMI 26.4
[2024-01-28] MEDS ORDERED: BUPIVACAINE HCL/PF 0.75% 10 ML VIAL ONE (07:15)
[2024-01-28] MEDS ORDERED: LIDOCAINE HCL/PF 1% SDV 5ML VIAL ONE (07:15)
[2024-01-28] MEDS ORDERED: ACETAMINOPHEN 500 MG TABLET (FP) PO PRN (08:41)
[2024-01-28 09:19] VITALS: RESP 20
[2024-01-28] MEDS: LIDOCAINE HCL 1% PRESERVATIVE FREE - 30ML VIAL IJ ONE ×2 (10:20)
[2024-01-28] MEDS: BUPIVACAINE HCL/PF 0.75% 10 ML VIAL NR ONE ×2 (10:23)
[2024-01-28 11:20] VITALS: BP 134/66; PULSE 72; TEMP 99.1
== END 2024-01-28 11:25 | disposition home or self-care (01) ==
LOC: JASU-SURG 04:20
PROVIDERS: ATTEND Pain Medicine Pain Medicine
PROC: 3E0T3BZ Introduction of Anesthetic Agent into Peripheral Nerves and Plexi, Percutaneous Approach (ICD-10-PCS; principal; 2024-01-28 10:30)
DX: M47.816 Spondylosis without myelopathy or radiculopathy, lumbar region (principal)
CPT/HCPCS: 76000-TC-FY

== ENCOUNTER 2024-03-03 04:12 | Day surgery (SDC) | payer OTHER ==
[2024-02-28 11:02] VITALS: BMI 25.1
[~2024-03-03 04:12] MED LIST: ACETAMINOPHEN 500 MG TABLET (FP) PO PRN
[2024-03-03] MEDS ORDERED: BUPIVACAINE HCL/PF 0.75% 10 ML VIAL ONE (07:28)
[2024-03-03 15:18] VITALS: TEMP 97.7
[2024-03-03] MEDS: LIDOCAINE HCL 1% PRESERVATIVE FREE - 30ML VIAL IJ ONE (17:03)
[2024-03-03] MEDS: BUPIVACAINE HCL/PF 0.75% 10 ML VIAL NR ONE (17:06)
[2024-03-03 17:27] VITALS: BP 114/54; PULSE 63; RESP 18
== END 2024-03-03 17:31 | disposition home or self-care (01) ==
LOC: JASU-SURG 04:12
PROVIDERS: ATTEND Pain Medicine Pain Medicine
PROC: 3E0T33Z Introduction of Anti-inflammatory into Peripheral Nerves and Plexi, Percutaneous Approach (ICD-10-PCS; 2024-03-03)
PROC: 3E0T3BZ Introduction of Anesthetic Agent into Peripheral Nerves and Plexi, Percutaneous Approach (ICD-10-PCS; principal; 2024-03-03 16:30)
DX: M47.816 Spondylosis without myelopathy or radiculopathy, lumbar region (principal)
CPT/HCPCS: 76000-TC-FY

== ENCOUNTER 2024-03-17 14:22 | Inpatient (IN) | payer OTHER ==
[2024-03-17 17:31] LABS: BASO % 0.4 % (0-2.0); EOS % 0.1 % (0-4.5); HEMATOCRIT 23.6 % (35.4-49); HEMOGLOBIN 7.1 GM/dL (11.7-16.9); LYMPH % 14.7 % (8-40); MCHC 30.1 g/dl (32.0-35.9); MEAN CELL VOLUME 63.7 fl (80-96); MEAN PLT VOLUME 7.3 fl (7.5-11.1); NEUT % 75.8 % (42.8-82.8); PLATELET COUNT 282 10^3/uL (134-434); RBC 3.71 M/mm3 (4.00-5.60); RDW 18.5 % (11.9-15.9); WHITE BLOOD COUNT 7.4 K/mm3 (4.0-10.0)
[2024-03-17 17:36] LABS: MCH 19.2 pg (25.7-33.7)
[2024-03-17 17:58] LABS: EPI CELLS 8 /uL (0-25.1); HYALINE CASTS 3 /uL (0-3.1); PH,URINE 5.5 (5.0-8.0); URINE APPEARANCE CLEAR; URINE BACTERIA 5 /uL (0-1359); URINE BILIRUBIN NEGATIVE (NEGATIVE); URINE COLOR YELLOW; URINE GLUCOSE (UA) NEGATIVE (NEGATIVE); URINE KETONE TRACE (NEGATIVE); URINE LEUK ESTERASE NEGATIVE (NEGATIVE); URINE NITRITE NEGATIVE (NEGATIVE); URINE PROTEIN 1+ (NEGATIVE); URINE RBC 13 /uL (0-23.9); URINE UROBILINOGEN 0.2 mg/dL (0.2-1.0); URINE WBC 16 /uL (0-25.8)
[2024-03-17 18:07] LABS: ANISOCYTOSIS 2+; MACROCYTOSIS 0; OVALOCYTE 2+; POTASSIUM 5.5 mmol/L (3.5-5.1)
[2024-03-17 18:09] LABS: BLOOD UREA NITROGEN 22.8 mg/dL (7-18); MAGNESIUM 2.1 mg/dL (1.8-2.4)
[2024-03-17 18:13] LABS: CREATININE 1.5 mg/dL (0.55-1.3)
[2024-03-17 18:15] LABS: BILIRUBIN,TOTAL 0.2 mg/dL (0.2-1); TOT PROT 5.6 g/dl (6.4-8.2)
[2024-03-17 19:40] LABS: HIV INTERPRETATION NEGATIVE (NEGATIVE)
[2024-03-17 23:04] VITALS: BMI 24.5
[2024-03-18] MEDS: SODIUM ZIRCONIUM CYCLOSILICATE (LOKELMA) 5 GM PACKET PO ONE ×2 (03:35→03:37)
[2024-03-18] MEDS: SODIUM CHLORIDE 500 ML IV STA (03:36)
[2024-03-18] MEDS: SODIUM CHLORIDE 1,000 ML IV SCH (04:15)
[2024-03-18 08:41] LABS: BASO % 0.6 % (0-2.0); EOS % 0.3 % (0-4.5); HEMATOCRIT 21.7 % (35.4-49); MCHC 30.7 g/dl (32.0-35.9); MEAN CELL VOLUME 64.4 fl (80-96); MEAN PLT VOLUME 7.9 fl (7.5-11.1); MONO % 9.4 % (3.8-10.2); NEUT % 69.7 % (42.8-82.8); PLATELET COUNT 245 10^3/uL (134-434); RBC 3.36 M/mm3 (4.00-5.60); RDW 18.9 % (11.9-15.9); RETICULOCYTES 1.48 % (0.5-1.5)
[2024-03-18 08:45] LABS: MCH 19.8 pg (25.7-33.7)
[2024-03-18 08:47] LABS: HEMOGLOBIN 6.6 GM/dL (11.7-16.9)
[2024-03-18 08:53] LABS: LDH 97 U/L (87-246); POTASSIUM 4.1 mmol/L (3.5-5.1)
[2024-03-18 08:54] LABS: CALCIUM 8.4 mg/dL (8.5-10.1)
[2024-03-18 08:56] LABS: ALBUMIN 2.8 g/dl (3.4-5.0); BLOOD UREA NITROGEN 18.5 mg/dL (7-18); MAGNESIUM 1.9 mg/dL (1.8-2.4)
[2024-03-18 08:59] LABS: CREATININE 1.1 mg/dL (0.55-1.3); PHOSPHOROUS 3.6 mg/dL (2.5-4.9)
[2024-03-18 09:01] LABS: BILIRUBIN,TOTAL 0.3 mg/dL (0.2-1); TOT PROT 4.9 g/dl (6.4-8.2)
[2024-03-18] MEDS: TAMSULOSIN HCL 0.4 MG CAP PO SCH (09:04)
[2024-03-18] MEDS: METOPROLOL TARTRATE 25 MG TABLET (FP) PO SCH (09:04)
[2024-03-18] MEDS: ESCITALOPRAM OXALATE 10 MG TABLET PO SCH (09:08)
[2024-03-18] MEDS ORDERED: APIXABAN 5 MG TABLET PO SCH (10:00)
[2024-03-18] MEDS: PANTOPRAZOLE SODIUM 40 MG VIAL IVPUSH SCH (11:01)
[2024-03-18] MEDS: ROSUVASTATIN CA 20 MG TABLET PO SCH (21:32)
[2024-03-18] MEDS: FUROSEMIDE 40 MG/4 ML INJECTABLE VIAL IVPUSH ONE (22:34)
[2024-03-19 08:51] LABS: BASO % 0.6 % (0-2.0); EOS % 0.2 % (0-4.5); HEMATOCRIT 28.3 % (35.4-49); HEMOGLOBIN 9.3 GM/dL (11.7-16.9); LYMPH % 14.7 % (8-40); MCHC 32.7 g/dl (32.0-35.9); MEAN CELL VOLUME 64.1 fl (80-96); MEAN PLT VOLUME 8.6 fl (7.5-11.1); NEUT % 75.5 % (42.8-82.8); PLATELET COUNT 261 10^3/uL (134-434); RBC 4.42 M/mm3 (4.00-5.60); RDW 20.5 % (11.9-15.9); WHITE BLOOD COUNT 8.4 K/mm3 (4.0-10.0)
[2024-03-19 09:04] LABS: POTASSIUM 4.2 mmol/L (3.5-5.1)
[2024-03-19 09:09] LABS: ALBUMIN 2.9 g/dl (3.4-5.0); BLOOD UREA NITROGEN 18.7 mg/dL (7-18); CALCIUM 8.7 mg/dL (8.5-10.1); MAGNESIUM 1.9 mg/dL (1.8-2.4)
[2024-03-19 09:12] LABS: CREATININE 1.4 mg/dL (0.55-1.3)
[2024-03-19 09:14] LABS: BILIRUBIN,TOTAL 0.7 mg/dL (0.2-1); TOT PROT 5.3 g/dl (6.4-8.2)
[2024-03-19] MEDS: PEG 3350/NA SULF BICARB CL/KCL 4000 ML SOLN.RECON PO ONE (16:21)
[2024-03-19] MEDS: BISACODYL 5 MG TABLET.DR (FP) PO ONE (19:01)
[2024-03-20 08:38] LABS: HEMATOCRIT 28.3 % (35.4-49); HEMOGLOBIN 8.9 GM/dL (11.7-16.9); MCH 20.3 pg (25.7-33.7); MCHC 31.6 g/dl (32.0-35.9); MEAN CELL VOLUME 64.2 fl (80-96); MEAN PLT VOLUME 8.2 fl (7.5-11.1); PLATELET COUNT 262 10^3/uL (134-434); RDW 20.7 % (11.9-15.9); WHITE BLOOD COUNT 7.4 K/mm3 (4.0-10.0)
[2024-03-20 09:00] LABS: ALBUMIN 2.9 g/dl (3.4-5.0); BLOOD UREA NITROGEN 13.3 mg/dL (7-18)
[2024-03-20 09:03] LABS: CREATININE 1.3 mg/dL (0.55-1.3)
[2024-03-20 09:04] LABS: BILIRUBIN,TOTAL 0.5 mg/dL (0.2-1); TOT PROT 5.1 g/dl (6.4-8.2)
[2024-03-20] MEDS: IRON SUCROSE INJECTION 200 MG in SODIUM CHLORIDE 90 ML IVPB ONE (20:38)
[2024-03-21 07:49] LABS: BASO % 0.5 % (0-2.0); EOS % 0.2 % (0-4.5); HEMATOCRIT 28.4 % (35.4-49); HEMOGLOBIN 8.5 GM/dL (11.7-16.9); LYMPH % 11.5 % (8-40); MEAN CELL VOLUME 66.3 fl (80-96); MEAN PLT VOLUME 7.9 fl (7.5-11.1); MONO % 10.3 % (3.8-10.2); NEUT % 77.5 % (42.8-82.8); PLATELET COUNT 258 10^3/uL (134-434); RBC 4.29 M/mm3 (4.00-5.60); RDW 20.9 % (11.9-15.9); WHITE BLOOD COUNT 7.7 K/mm3 (4.0-10.0)
[2024-03-21 07:58] LABS: MCH 19.9 pg (25.7-33.7)
[2024-03-21 08:08] LABS: CALCIUM 8.9 mg/dL (8.5-10.1)
[2024-03-21 08:09] LABS: ALBUMIN 2.8 g/dl (3.4-5.0); BLOOD UREA NITROGEN 16.2 mg/dL (7-18)
[2024-03-21 08:12] LABS: CREATININE 1.3 mg/dL (0.55-1.3)
[2024-03-21 08:14] LABS: BILIRUBIN,TOTAL 0.5 mg/dL (0.2-1)
[2024-03-21 09:22] LABS: ANISOCYTOSIS 1+; MACROCYTOSIS 0
[2024-03-21] MEDS: IRON SUCROSE INJECTION 100 MG in SODIUM CHLORIDE 95 ML IVPB ONE (14:40)
[2024-03-22 07:17] LABS: HEMATOCRIT 26.1 % (35.4-49); HEMOGLOBIN 8.3 GM/dL (11.7-16.9); MCH 20.8 pg (25.7-33.7); MCHC 31.6 g/dl (32.0-35.9); MEAN CELL VOLUME 65.7 fl (80-96); MEAN PLT VOLUME 8.2 fl (7.5-11.1); PLATELET COUNT 232 10^3/uL (134-434); RBC 3.98 M/mm3 (4.00-5.60); RDW 20.9 % (11.9-15.9); WHITE BLOOD COUNT 6.9 K/mm3 (4.0-10.0)
[2024-03-22 07:31] LABS: POTASSIUM 3.6 mmol/L (3.5-5.1)
[2024-03-22 07:41] LABS: ALBUMIN 2.6 g/dl (3.4-5.0); BLOOD UREA NITROGEN 14.3 mg/dL (7-18); CALCIUM 8.7 mg/dL (8.5-10.1); MAGNESIUM 1.8 mg/dL (1.8-2.4)
[2024-03-22 07:45] LABS: CREATININE 1.1 mg/dL (0.55-1.3); PHOSPHOROUS 3.2 mg/dL (2.5-4.9)
[2024-03-22 07:46] LABS: BILIRUBIN,TOTAL 0.3 mg/dL (0.2-1); TOT PROT 4.6 g/dl (6.4-8.2)
[2024-03-22] MEDS: IRON SUCROSE INJECTION 100 MG in SODIUM CHLORIDE 95 ML IVPB ONE (11:40)
[2024-03-22] MEDS: SODIUM CHLORIDE 1,000 ML IV SCH (13:31)
[2024-03-22] MEDS: POLYETHYLENE GLYCOL 3350 255 GM BTL PO ONE (13:31)
[2024-03-22] MEDS: NEOMYCIN SO4 500 MG TABLET PO SCH (13:32)
[2024-03-22] MEDS: metroNIDAZOLE 500 MG TABLET PO SCH (13:32)
[2024-03-22] MEDS: BISACODYL 5 MG TABLET.DR (FP) PO ONE (17:42)
[2024-03-23 07:41] LABS: INR 1.07 (0.83-1.09); PROTHROMBIN TIME (PATIENT) 12.1 SEC (9.7-13.0)
[2024-03-23 07:45] LABS: BASO % 0.3 % (0-2.0); EOS % 0.1 % (0-4.5); HEMATOCRIT 27.4 % (35.4-49); HEMOGLOBIN 8.4 GM/dL (11.7-16.9); MCH 20.4 pg (25.7-33.7); MCHC 30.5 g/dl (32.0-35.9); MEAN CELL VOLUME 67.1 fl (80-96); MONO % 10.7 % (3.8-10.2); NEUT % 72.9 % (42.8-82.8); PLATELET COUNT 238 10^3/uL (134-434); RBC 4.09 M/mm3 (4.00-5.60); WHITE BLOOD COUNT 6.9 K/mm3 (4.0-10.0)
[2024-03-23 07:59] LABS: POTASSIUM 3.6 mmol/L (3.5-5.1)
[2024-03-23 08:00] LABS: CALCIUM 8.5 mg/dL (8.5-10.1)
[2024-03-23 08:01] LABS: ALBUMIN 2.7 g/dl (3.4-5.0); BLOOD UREA NITROGEN 8.5 mg/dL (7-18)
[2024-03-23 08:04] LABS: CREATININE 1.2 mg/dL (0.55-1.3)
[2024-03-23 08:06] LABS: BILIRUBIN,TOTAL 0.3 mg/dL (0.2-1); TOT PROT 4.9 g/dl (6.4-8.2)
[2024-03-23] MEDS ORDERED: INDOCYANINE GREEN 25 MG/10 ML VIAL IVPUSH ONE (09:31)
[2024-03-23] MEDS ORDERED: BUPIVACAINE HCL/PF 0.25% (2.5MG/ML) 10 ML VIAL ONE (09:32)
[2024-03-23] MEDS ORDERED: CEFOXITIN SODIUM/DEXTROSE,ISO 2 GM/50 ML BAG ONE (09:32)
[2024-03-23] MEDS ORDERED: PROPOFOL 20 ML ONE (10:04)
[2024-03-23] MEDS ORDERED: ROCURONIUM BROMIDE 50 MG/5 ML SYRINGE ONE (10:05)
[2024-03-23] MEDS ORDERED: MIDAZOLAM HCL 2 MG/2 ML SINGLE DOSE VIAL ONE (10:05)
[2024-03-23] MEDS: cefOXitin SODIUM 2 GM VIAL (RESTRICTED TO ID) IVPB ONE (10:40)
[2024-03-23] MEDS ORDERED: DEXAMETHASONE SOD PHOSPHATE 4 MG/1 ML VIAL ONE (10:45)
[2024-03-23] MEDS ORDERED: ONDANSETRON 4 MG/2 ML VIAL ONE ×2 (10:45→12:48)
[2024-03-23] MEDS ORDERED: HEPARIN NA (PORCINE) 5,000 UNITS/ML 1ML VIAL ONE (10:50)
[2024-03-23] MEDS: HEPARIN NA (PORCINE) 5,000 UNITS/ML 1ML VIAL SQ ONE (10:55)
[2024-03-23] MEDS: BUPIVACAINE HCL/PF 0.25% (2.5MG/ML) 10 ML VIAL IJ ONE (10:56)
[2024-03-23] MEDS ORDERED: HYDROmorphone HCl 2 MG/ML VIAL ONE (11:06)
[2024-03-23] MEDS ORDERED: ACETAMINOPHEN INJECTION 100 ML ONE (11:08)
[2024-03-23] MEDS ORDERED: GLYCOPYRROLATE 0.2 MG/1 ML VIAL ONE (11:21)
[2024-03-23] MEDS ORDERED: KETOROLAC TROMETHAMINE 30 MG/1 ML VIAL ONE (12:29)
[2024-03-23] MEDS ORDERED: NEOSTIGMINE METHYLSULFATE 0.5 MG/1 ML - 10 ML MDV ONE (12:31)
[2024-03-23] MEDS ORDERED: SUCCINYLCHOLINE CHLORIDE 200 MG/10 ML SYRINGE ONE (12:36)
[2024-03-23] MEDS ORDERED: ONDANSETRON 4 MG/2 ML VIAL IVPUSH PRN (13:39)
[2024-03-23] MEDS ORDERED: oxyCODONE HCL 5 MG TABLET PO PRN (13:53)
[2024-03-23] MEDS: LACTATED RINGERS SOLUTION 1,000 ML IV SCH (14:11)
[2024-03-23] MEDS ORDERED: CEFOXITIN SODIUM 2 GM in DEXTROSE 5%-WATER - 100 ML IVPB SCH (18:00)
[2024-03-23] MEDS: SODIUM CHLORIDE 1,000 ML IV SCH (19:03)
[2024-03-23] MEDS: CEFOXITIN SODIUM/DEXTROSE,ISO 2 GM/50 ML BAG IVPB SCH (20:31)
[2024-03-23] MEDS: ACETAMINOPHEN 1000 MG/100 ML BAG IVPB SCH (20:31)
[2024-03-23] MEDS: ROSUVASTATIN CA 20 MG TABLET PO SCH (21:55)
[2024-03-23] MEDS: PANTOPRAZOLE SODIUM 40 MG VIAL IVPUSH SCH (21:56)
[2024-03-24 08:20] LABS: HEMATOCRIT 25.9 % (35.4-49); HEMOGLOBIN 8.2 GM/dL (11.7-16.9); MCH 21.4 pg (25.7-33.7); MCHC 31.7 g/dl (32.0-35.9); MEAN CELL VOLUME 67.5 fl (80-96); MEAN PLT VOLUME 7.8 fl (7.5-11.1); PLATELET COUNT 222 10^3/uL (134-434); RBC 3.83 M/mm3 (4.00-5.60); RDW 20.9 % (11.9-15.9); WHITE BLOOD COUNT 9.4 K/mm3 (4.0-10.0)
[2024-03-24 08:34] LABS: POTASSIUM 3.9 mmol/L (3.5-5.1)
[2024-03-24] MEDS: TAMSULOSIN HCL 0.4 MG CAP PO SCH (08:38)
[2024-03-24 08:46] LABS: ALBUMIN 2.6 g/dl (3.4-5.0); BLOOD UREA NITROGEN 8.8 mg/dL (7-18); CALCIUM 8.6 mg/dL (8.5-10.1); MAGNESIUM 1.6 mg/dL (1.8-2.4)
[2024-03-24 08:47] LABS: BILIRUBIN,TOTAL 0.4 mg/dL (0.2-1); CREATININE 1.4 mg/dL (0.55-1.3); TOT PROT 4.7 g/dl (6.4-8.2)
[2024-03-24 08:49] LABS: PHOSPHOROUS 3.2 mg/dL (2.5-4.9)
[2024-03-24] MEDS: ESCITALOPRAM OXALATE 10 MG TABLET PO SCH (10:12)
[2024-03-24] MEDS: ENOXAPARIN NA (PORCINE) 40 MG/0.4 ML DISP.SYRIN SQ SCH (14:23)
[2024-03-24] MEDS: oxyCODONE HCL 5 MG TABLET PO PRN (21:39)
[2024-03-25 09:00] LABS: HEMATOCRIT 24.5 % (35.4-49); HEMOGLOBIN 7.5 GM/dL (11.7-16.9); MCH 21.1 pg (25.7-33.7); MCHC 30.8 g/dl (32.0-35.9); MEAN CELL VOLUME 68.5 fl (80-96); MEAN PLT VOLUME 7.9 fl (7.5-11.1); PLATELET COUNT 225 10^3/uL (134-434); RBC 3.58 M/mm3 (4.00-5.60); RDW 21.4 % (11.9-15.9); WHITE BLOOD COUNT 6.8 K/mm3 (4.0-10.0)
[2024-03-25] MEDS: METOPROLOL TARTRATE 25 MG TABLET (FP) PO SCH (09:14)
[2024-03-25 09:25] LABS: POTASSIUM 3.4 mmol/L (3.5-5.1)
[2024-03-25 09:38] LABS: ALBUMIN 2.4 g/dl (3.4-5.0); BILIRUBIN,TOTAL 0.5 mg/dL (0.2-1); BLOOD UREA NITROGEN 5.4 mg/dL (7-18); CALCIUM 8.5 mg/dL (8.5-10.1); CREATININE 1.2 mg/dL (0.55-1.3); MAGNESIUM 1.8 mg/dL (1.8-2.4); PHOSPHOROUS 2.4 mg/dL (2.5-4.9); TOT PROT 4.4 g/dl (6.4-8.2)
[2024-03-25] MEDS: IRON SUCROSE INJECTION 200 MG in SODIUM CHLORIDE 100 ML IVPB ONE (12:18)
[2024-03-26 09:28] LABS: POTASSIUM 3.7 mmol/L (3.5-5.1)
[2024-03-26 09:30] LABS: BLOOD UREA NITROGEN 5.4 mg/dL (7-18); CALCIUM 8.5 mg/dL (8.5-10.1)
[2024-03-26 09:31] LABS: MAGNESIUM 1.7 mg/dL (1.8-2.4)
[2024-03-26 09:34] LABS: CREATININE 1.1 mg/dL (0.55-1.3); PHOSPHOROUS 2.4 mg/dL (2.5-4.9)
[2024-03-26 09:38] LABS: HEMOGLOBIN 7.9 GM/dL (11.7-16.9); MCH 21.6 pg (25.7-33.7); MCHC 31.6 g/dl (32.0-35.9); MEAN CELL VOLUME 68.3 fl (80-96); MEAN PLT VOLUME 8.3 fl (7.5-11.1); PLATELET COUNT 227 10^3/uL (134-434); RBC 3.66 M/mm3 (4.00-5.60); RDW 21.7 % (11.9-15.9); WHITE BLOOD COUNT 6.5 K/mm3 (4.0-10.0)
[2024-03-26] MEDS: MAGNESIUM 2GM/50ML STERILE WATER IVPB IVPB ONE (11:27)
[2024-03-26] MEDS: IRON SUCROSE INJECTION 100 MG in SODIUM CHLORIDE 95 ML IVPB ONE (11:28)
[2024-03-26] MEDS: POTASSIUM PHOSPHATE 30 MM in SODIUM CHLORIDE 500 ML IVPB ONE (11:29)
[2024-03-26] MEDS: metoPROLOL SUCCINATE 25 MG TAB.SR.24H (FP) PO SCH (11:31)
[2024-03-26] MEDS ORDERED: metoPROLOL SUCCINATE 25 MG TAB.SR.24H (FP) PO SCH (11:32)
[2024-03-26] MEDS: MAGNESIUM SULF 50% (8.12 MEQ/2 ML-1 GM VIAL) IVPB ONE (13:06)
[2024-03-26] MEDS: ENOXAPARIN NA (PORCINE) 40 MG/0.4 ML DISP.SYRIN SQ ONE (14:10)
[2024-03-26 18:48] VITALS: BP 126/66; PULSE 59; RESP 18; TEMP 98.2
[2024-03-27] MEDS ORDERED: IRON SUCROSE INJECTION 100 MG in SODIUM CHLORIDE 95 ML IVPB ONE (10:00)
[2024-03-27] MEDS ORDERED: ENOXAPARIN NA (PORCINE) 40 MG/0.4 ML DISP.SYRIN SQ SCH (10:00)
== END 2024-03-26 19:35 | disposition home or self-care (01) | DRG 330 ==
LOC: JER 14:22 → JERBED 19:35 → J4W 21:37
PROVIDERS: ADMIT Internal Medicine; ATTEND Internal Medicine
PROC: 30233N1 Transfusion of Nonautologous Red Blood Cells into Peripheral Vein, Percutaneous Approach (ICD-10-PCS; 2024-03-18)
PROC: 0DJ08ZZ Inspection of Upper Intestinal Tract, Via Natural or Artificial Opening Endoscopic (ICD-10-PCS; 2024-03-20)
PROC: 0DBK8ZZ Excision of Ascending Colon, Via Natural or Artificial Opening Endoscopic (ICD-10-PCS; 2024-03-20)
PROC: 0DBP8ZZ Excision of Rectum, Via Natural or Artificial Opening Endoscopic (ICD-10-PCS; 2024-03-20)
PROC: 0DBM8ZZ Excision of Descending Colon, Via Natural or Artificial Opening Endoscopic (ICD-10-PCS; 2024-03-20)
PROC: 0DTF4ZZ Resection of Right Large Intestine, Percutaneous Endoscopic Approach (ICD-10-PCS; principal; 2024-03-23 09:35)
DX: C18.0 Malignant neoplasm of cecum (principal); C64.9 Malignant neoplasm of unspecified kidney, except renal pelvis; D62 Acute posthemorrhagic anemia; N17.9 Acute kidney failure, unspecified; C78.6 Secondary malignant neoplasm of retroperitoneum and peritoneum; I48.0 Paroxysmal atrial fibrillation; I95.9 Hypotension, unspecified; E78.5 Hyperlipidemia, unspecified; R55 Syncope and collapse; F41.8 Other specified anxiety disorders; N40.0 Benign prostatic hyperplasia without lower urinary tract symptoms; E87.5 Hyperkalemia; K44.9 Diaphragmatic hernia without obstruction or gangrene
CPT/HCPCS: 0241U-QW; 36415; 36430; 70450-TC; 71045-TC-FY; 71250-TC; 74177-TC; 80048; 80053; 81003; 82272; 82378; 82607; 82728; 82962; 83540; 83550; 83615; 83735; 84100; 84439; 84443; 84466; 84484; 85025; 85027; 85045; 85610; 86140; 86803; 86850; 86900; 86901; 86922; 87086; 87389; 88305-TC; 88309-TC; 88341-TC; 88342-TC; 93005; 93010; 93306-TC; 94760; 97116-GP; 97161-GP; 99285-25; J0131; J1644; J1756; P9058